=== PATIENT | female | born 1970 | race Caucasian/White ===

== ENCOUNTER 2016-12-04 01:34 | Emergency (ER) | payer BC, MEDICAID ==
[2016-12-04] MEDS ORDERED: Ketorolac 60 MG/2 ML SDV IM ONE (01:41)
[2016-12-04] MEDS ORDERED: diphenhydrAMINE 50 MG/ML SDV IM ONE (01:42)
[2016-12-04] MEDS ORDERED: Ondansetron 4 MG Tab.DIS PO ONE (01:43)
[2016-12-04 02:22] VITALS: BP 126/77
--- NOTE | 2016-12-04 08:38 | ER ---
Date of Service: 12/04/2016 SUBJECTIVE: Marcie presents to the emergency room with complaints of migraine headache. The patient has a long-standing history of migraine headaches and is a frequently utilizer of the emergency room for rescue therapy for her migraines. Last time she was in the emergency room for this was on 11/07/2016. The patient states that this headache started this morning. She states that she did take some Phenergan, but this did not help with the headache. She states that she does not use Triptan because they exacerbate her symptoms. PAST MEDICAL HISTORY: 1. Post-concussion syndrome; however, she did have migraine headaches long before her concussion. 2. Bipolar disorder. 3. Kidney stones. 4. Anxiety. 5. Depression. 6. Previous suicidal ideation. 7. Chronic pain syndrome. MEDICATIONS: Please see nurse's notes. ALLERGIES: NKDA. REVIEW OF SYSTEMS: General: No fever or chills. HEENT: Denies any vision changes. Denies any head trauma. Respiratory: No shortness of breath. Cardiac: Denies any substernal chest pain. Gastrointestinal: Positive for nausea and vomiting. No melena, hematochezia, or hematemesis. : Denies any dysuria. Musculoskeletal: No myalgias or arthralgias. Neurologic: Does again complain of frontal headache and photophobia. She states the discomfort is similar to what she has experienced with previous migraines. PHYSICAL EXAMINATION: General: This is a 46-year-old female patient, who is in no acute distress. Vital Signs: Blood pressure is 126/77, pulse rate is 90, temperature is 35.6, respiratory rate 16. Skin: Warm, pink, and dry. HEENT: Head is normocephalic and atraumatic. Neurologic: Cranial nerves II through XII are intact. Speech is fluent. Gait is within normal limits. 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 No facial droop noted. Face muscles are symmetrical with the eyebrows as well. Remainder of her physical examination is within normal limits. EMERGENCY ROOM COURSE: The patient was given injection of Thorazine 50 mg IM, Benadryl 50 mg IM, Toradol 60 mg IM, and Zofran ODT 4 mg p.o. She was observed and stated that her headache was improving significantly. She remained stable in my care in the emergency room. ASSESSMENT: Recurrent migraine headache. PLAN: The patient will be discharged. Continue with her current medications for her migraines. Follow up in the clinic in the next 7 to 10 days. Return to the emergency room if she develops numbness or tingling in her extremities, difficulties with speech or ambulation,or other worrisome signs or symptoms. All questions were answered. MWK: 12/04/2016 02:47:25 MODL: 12/04/2016 08:28:14 /[id number]
== END 2016-12-04 02:54 | disposition home or self-care (01) ==
LOC: VM.ED 01:34
DX: G43.909 Migraine, unspecified, not intractable, without status migrainosus (principal); F41.8 Other specified anxiety disorders
CPT/HCPCS: 96372; 99283; A9270; J1200; J1885; J3230